=== PATIENT | male | born 1950 | race Hispanic/Latino ===

== ENCOUNTER 2021-07-20 06:04 | Day surgery (SDC) | payer MEDICARE ==
[2021-07-20] MEDS ORDERED: Lidocaine 1% MPF 2 ML VIAL ONE (07:47)
[2021-07-20] MEDS ORDERED: Famotidine/PF 20 mg/2ml Vial ONE (08:54)
[2021-07-20] MEDS ORDERED: SUGAMMADEX SODIUM 200 MG/2 ML VIAL ONE (08:54)
[2021-07-20] MEDS ORDERED: EPINEPHrine 1 MG/ML AMP ONE (09:18)
== END 2021-07-20 11:17 | disposition home or self-care (01) ==
LOC: CSHSDC 06:04
PROVIDERS: ATTEND Otolaryngology Plastic Surgery within the Head & Neck
PROC: 0CBM8ZX Excision of Pharynx, Via Natural or Artificial Opening Endoscopic, Diagnostic (ICD-10-PCS; principal; 2021-07-20)
DX: C32.0 Malignant neoplasm of glottis (principal); I10 Essential (primary) hypertension
CPT/HCPCS: 70491; 88305; 88331; 93005; 93010; J0171; S0028

== ENCOUNTER 2023-01-31 06:04 | Observation (INO) | payer MEDICARE, MEDICAID ==
[2023-01-28 09:28] VITALS: BMI 22.2
[2023-01-31] MEDS ORDERED: PROPOFOL 20 ML ONE (08:12)
[2023-01-31] MEDS ORDERED: PROPOFOL 40 ML ONE (08:12)
[2023-01-31] MEDS ORDERED: Midazolam HCl 2 mg/2 ml Vial ONE (08:13)
[2023-01-31] MEDS ORDERED: fentaNYL 50 mcg/mL 1 mL Vial ONE (08:13)
[2023-01-31] MEDS ORDERED: Dexamethasone 20 MG/5 ML VIAL ONE (08:17)
[2023-01-31] MEDS ORDERED: Ondansetron PF 4 MG/2 ML Vial ONE (08:17)
[2023-01-31] MEDS ORDERED: CEFAZOLIN 1 GM VIAL ONE (08:20)
[2023-01-31] MEDS ORDERED: Silver Nitrate Application 1 EACH ONE (08:20)
[2023-01-31] MEDS ORDERED: Ondansetron PF 4 MG/2 ML Vial IVP PRN (09:05)
[2023-01-31] MEDS ORDERED: Acetaminophen 325 MG TAB PO PRN (09:05)
[2023-01-31] MEDS ORDERED: HYDROcodone/Acetaminophen 5/325 mg Tablet PO PRN (09:05)
[2023-01-31] MEDS ORDERED: Ipratropium Bromide 2.5 ml Neb ONE (09:17)
[2023-01-31] MEDS ORDERED: Ipratropium/Albuterol 3 ML NEB NEB SCH (09:30)
[2023-02-01] MEDS ORDERED: Levothyroxine Sodium 100 MCG TAB PO SCH (06:00)
[2023-02-01 07:16] VITALS: BP 106/75; TEMP 97.9
== END 2023-02-01 09:54 | disposition home or self-care (01) ==
LOC: CSHSDC 06:04 → CSHICU 09:05
PROVIDERS: ADMIT Otolaryngology Plastic Surgery within the Head & Neck; ATTEND Otolaryngology Plastic Surgery within the Head & Neck
PROC: 0CJS8ZZ Inspection of Larynx, Via Natural or Artificial Opening Endoscopic (ICD-10-PCS; principal; 2023-01-31)
PROC: 0BQ10ZZ Repair Trachea, Open Approach (ICD-10-PCS; 2023-01-31)
DX: J39.8 Other specified diseases of upper respiratory tract (principal); J38.00 Paralysis of vocal cords and larynx, unspecified; E03.9 Hypothyroidism, unspecified; I10 Essential (primary) hypertension; Z87.891 Personal history of nicotine dependence; Z79.890 Hormone replacement therapy
CPT/HCPCS: 31525; 31820; 93005; 94640; 94760 ×2; 94762; J3010; 93010; J0690; J1100; J2250; J2405; J2704; J7620